=== PATIENT | male | born 1960 | race Caucasian/White ===

== ENCOUNTER 2023-07-11 18:35 | Emergency (ER) | payer MEDICARE, OTHER, SELFPAY ==
[2023-07-11 18:40] VITALS: BP 126/73
[2023-07-11 22:07] VITALS: BP 136/85; BMI 42.0
--- NOTE | 2023-07-11 22:27 | ED.MUSCINJ ---
HPI-Injury
General
Chief Complaint: Musculo-Skeletal Complaint
Source: patient
Time Seen by Provider: 07/11/23 22:04
Nursing documentation reviewed up to this point in time: agreed with
Travel History
Have you had any contact with someone who has COVID-19?: No
Do you have any symptoms of coronavirus? Fever > 100 degrees, chills, cough, shortness of breath, sore throat, loss of taste or smell, muscle aches, or headache?: No
History of Present Illness-Injury
Initial Injury comments:
Pleasant 62-year-old male that presents with right knee pain. He states that it has been present for the last few days. He did cut the grass for the first time last weekend and states that he has been having pain since. Denies fever, chills,
nausea or vomiting.
Past History
Past History
ED Past Medical History: HTN, Hypercholesterolemia, NIDDM and Renal failure
Social History
Tobacco: Non-smoker
Review of Systems
Review of Systems
Allergies reviewed?: Yes
All Other Systems: ROS reviewed and negative except as documented in HPI and ROS
Constitutional: Reports no symptoms
EENT: Reports no symptoms
Respiratory: Reports no symptoms
Cardiac: Reports no symptoms
ABD/GI: Reports no symptoms
: Reports no symptoms
Musculoskeletal: Reports joint pain and joint swelling
Skin: Reports no symptoms
Neurological: Reports no symptoms
Endocrine: Reports no symptoms
Hematologic/Lymphatic: Reports no symptoms
Psychiatric: Reports no symptoms
Phy Exam
General Physical Exam
General Presentation: well appearing and mild distress
General age: appears stated age
General Skin: warm and dry
General Habitus: normal
General Mental: alert
Pulmonary Exam
Pulmonary Exam: no respiratory distress
Neurological Exam
Neurological Exam: alert and oriented x3
Musculoskeletal Exam
Musculoskeletal Exam: joint swelling and neuro vasc intact
Skin Exam
Skin Exam: normal color and warm/dry
Psychiatric Exam
Psychiatric Exam: normal mood/affect
Injury Course
Orders/Labs/Results
Orders:
Orders
07/11/23 18:42
Knee, Right 4 or More Views [CR Knee- Right 4 Or More View*] Urgent
Comment:
Reason For Exam: pain
US Periph Venous LOWER Ext RT Urgent
Comment:
Reason For Exam: pain
07/11/23 22:29
Body Fluid Cell Count Urgent
What is the Body Fluid: r knee aspiration
Date Specimen was Collected: 07/11/23
Time Specimen was Collected: 23:17
Body Fluid Crystals Routine
What is the Body Fluid: r knee aspiration
Date Specimen was Collected: 07/11/23
Time Specimen was Collected: 23:17
Anaerobic Culture Routine
[facility] Source: Joint
Specimen Description:
Date Specimen was Collected: 07/11/23
Time Specimen was Collected: 23:17
Comment: Cultures & Sensitivity
Fluid Culture with Gram Stain Routine
[facility] Source: Joint Fluid
Specimen Description:
Date Specimen was Collected: 07/11/23
Time Specimen was Collected: 23:17
Comment: Cultures & Sensitivity
Gram Stain Routine
[place] Source: Joint
Specimen Description:
Date Specimen was Collected: 07/11/23
Time Specimen was Collected: 23:17
Comment: r knee aspiration
Procedures
Incision/Drainage/Joint Aspiration
Right Knee:
Anethesia: 1% Lidocaine
Preparation: cleaned with Hibiclens
Type of procedure: aspiration
Description of abscess: greater than 3cm
How much fluid was obtained?: number in mls (45)
Fluid description: clear and cloudy
Treatment: bandaid applied
Additional information:
Patient tolerated procedure well with no immediate adverse effects
*Critical Care Note
Total Time (30-74mins, 75-104mins- exclusive of procedures): Not Applicable
ED Attending Note
-
Portions of this chart may have been created with voice recognition software.� Occasional wrong word or��sound alike� substitutions may have occurred due to the inherent limitations of voice recognition software.
Discharge Plan
Departure
Patient Disposition: Home (Routine Discharge)
Date of Disposition: 07/11/23
Time of Disposition: 23:22
Patient with high blood pressure during this ER visit?: Yes
Discharge Problem:
Joint effusion
Instructions: Swollen Joints (DC), Using Cold for Pain, BLOOD PRESSURE
Prescriptions:
New
acetaminophen-codeine 300-30 mg tablet
1 tab PO Q6H PRN (Reason: Pain) Qty: 7 0RF
No Action
mycophenolate mofetil 250 mg Capsule
250 mg PO BID
lisinopril 20 mg Tablet
20 mg PO BID
prednisone 5 mg Tablet
5 mg PO DAILY
amlodipine 2.5 mg Tablet
2.5 mg PO DAILY
warfarin 3 mg Tablet
3 mg PO HS
simvastatin 20 mg Tablet
20 mg PO HS
metoprolol succinate 25 mg Tablet Extended Release 24 Hr
25 mg PO BID
tacrolimus 1 mg Capsule
1 mg PO Q12H
bupropion HCl 200 mg Tablet Sustained-Release 12 Hr
200 mg PO DAILY
cinacalcet 60 mg Tablet
60 mg PO DAILY
cephalexin 500 mg capsule
500 mg PO TID 7 Days Qty: 21 0RF
oxycodone-acetaminophen [Percocet] 5-325 mg tablet
1 tab PO Q6HPRN PRN (Reason: pain) Qty: 8 0RF
Referrals:
Lilly Dominguez CRNP [Family Provider] -
Spencer Islas MD [Active] - As needed
Activity Restrictions/Additional Instructions:
It was a pleasure meeting you and taking part in your care. We hope for your continued healing and wellness.
Please read discharge instructions in their entirety. However, they are for general education and may not describe your exact diagnosis at discharge. Information on your ER visit and medical conditions were discussed with you along with appropriate
follow up information...
If indicated, please take your medications as instructed and indicated on discharge paperwork.
Please schedule a follow up appointment as directed. Call to schedule an appointment
Please return to the emergency department with ANY change in, persisting, or worsening of symptoms. If any of your symptoms do not improve, or persist, or become more severe within 6-12 hours, please return to the emergency department for further
care.
Please return to the emergency department if you develop a headache, neck pain/stiffness, fever greater than 100.4F, chest pain, shortness of breath, persistent nausea, vomiting, slurred speech, difficulty walking, numbness/tingling, weakness, signs
of infection or any other symptoms that are worrisome to you.
If you have any questions or concerns please do not hesitate to call the Hospital at or E-mail me directly at [email or web address]
.
Interventions
Interventions:
*Risk Screen - Suicide Last Done: 07/11/23 18:40
*General Assessment Last Done: 07/11/23 18:40
*Neglect/Abuse Screening Last Done: 07/11/23 18:40
*ED COVID-19 Vaccine History Last Done: 07/11/23 18:40
ED-Musculoskeletal Assessment Last Done: 07/11/23 22:08
Discharge Date and Time
Print Language: SYRIAN
[2023-07-11 23:43] VITALS: BP 140/91
== END 2023-07-11 23:44 | disposition home or self-care (01) ==
LOC: EMR 18:35
PROVIDERS: EMERGENCY PHYSICIAN Student in an Organized Health Care Education/Training Program; FAMILY PHYSICIAN Nurse Practitioner
DX: M25.461 Effusion, right knee (principal); I10 Essential (primary) hypertension
CPT/HCPCS: 99285; 10060; 73564; 87015; 87070; 87075; 87205; 89051; 89060; 93971